=== PATIENT | male | born 1990 | race African-American/Black ===

== ENCOUNTER → 2024-03-31 | Outpatient (CLI) | payer MEDICAID, SELFPAY | END | disposition home or self-care (01) | PROVIDERS: PCP Family Medicine; Referring Provider Family Medicine; Visit Provider Family Medicine | DX: Z53.29 Procedure and treatment not carried out because of patient's decision for other reasons (principal) ==

== ENCOUNTER → 2024-04-07 | Outpatient (CLI) | payer MEDICAID, SELFPAY ==
--- NOTE | 2024-04-07 09:52 | XR_ITS ---
Examination: AP chest single view TECHNIQUE: AP semiupright portable chest single view Exam date and time: April 07, 2024 1009 hours Comparison November 01, 2020 INDICATIONS: Tuberculosis history FINDINGS: Normal heart size No pneumonia or pulmonary edema Surgical clips upper central and left abdomen IMPRESSION: No active disease No radiographic findings of tuberculosis
== END | disposition home or self-care (01) ==
PROVIDERS: PCP Family Medicine; Referring Provider Family Medicine; Visit Provider Family Medicine
DX: Z11.1 Encounter for screening for respiratory tuberculosis (principal)
CPT/HCPCS: 71045